=== PATIENT | female | born 1945 | race Caucasian/White ===

== ENCOUNTER → 2017-03-02 | Outpatient (CLI) | payer MEDICARE, OTHER ==
[~2017-03-02] VITALS: Ht 170.2 cm; Wt 81.2 kg
[~2017-03-02] MED LIST: CALC600T10 PO; EVIS1TAB PO; HYDR25TAB PO; LIPI10TA PO; MULT1TAB10 PO; NS 1,000 ML IV ONE; OMEP40CA2 PO; PROPOFOL 200 MG/20 ML VIAL As Ordered ONE; VITA100037 PO
--- NOTE | 2017-03-02 10:12 | ROOR ---
Patient Name: Marixa Santos Procedure Date: 03/02/2017 9:59 AM Date of : 1945 Age: 72 Room: [facility] Gender: Female Note Status: Finalized Procedure: Colonoscopy Indications: High risk colon cancer surveillance: Personal history of colonic polyps Providers: Irvin LAMB MD Referring MD: CELINA JARVIS MD Requesting Provider: Medicines: Monitored Anesthesia Care Complications: No immediate complications. Procedure: Pre-Anesthesia Assessment: - The heart rate, respiratory rate, oxygen saturations, blood pressure, adequacy of pulmonary ventilation, and response to care were monitored throughout the procedure. The Colonoscope was introduced through the anus and advanced to the cecum, identified by appendiceal orifice and ileocecal valve. The colonoscopy was performed without difficulty. The patient tolerated the procedure well. The quality of the bowel preparation was good. Findings: The perianal and digital rectal examinations were normal. A diminutive polyp was found in the ascending colon. The polyp was sessile. The polyp was removed with a cold snare. Resection and retrieval were complete. The exam was otherwise without abnormality on direct and retroflexion views. Impression: - One diminutive polyp in the ascending colon, removed with a cold snare. Resected and retrieved. - The examination was otherwise normal on direct and retroflexion views. Recommendation: - Telephone endoscopist for pathology results in 2 weeks. - If the pathology report reveals adenomatous tissue, then repeat the colonoscopy for surveillance in 5 years. - If the pathology report indicates hyperplastic polyp, then repeat colonoscopy for screening purposes in 10 years. Irvin Lamb MD Irvin LAMB MD 03/02/2017 10:11:35 AM This report has been signed electronically. Number of Addenda: 0 Note Initiated On: 03/02/2017 9:59 AM Estimated Blood Loss: Estimated blood loss: none.
[2017-03-02 10:35] VITALS: BP 119/57
== END ==
LOC: M OPP 08:23
PROVIDERS: ATTEND Internal Medicine Gastroenterology
DX: Z12.11 Encounter for screening for malignant neoplasm of colon (principal); Z86.010 Personal history of colon polyps; D12.2 Benign neoplasm of ascending colon; Z79.899 Other long term (current) drug therapy; K21.9 Gastro-esophageal reflux disease without esophagitis; M19.90 Unspecified osteoarthritis, unspecified site; H81.09 Meniere's disease, unspecified ear; Z85.3 Personal history of malignant neoplasm of breast

== ENCOUNTER → 2017-07-18 | Outpatient (REF) | payer MEDICARE, OTHER ==
[~2017-07-18] MED LIST changes: -CALC600T10 PO; +CALC600T31 PO; -NS 1,000 ML IV ONE; -PROPOFOL 200 MG/20 ML VIAL As Ordered ONE; -VITA100037 PO; +VITA100067 PO
[2017-07-18 16:59] LABS: CREATININE FOR GFR 0.98 MG/DL (0.55-1.02); GLOMERULAR FILTRATION RATE 59.7 (>39)
== END ==
LOC: M LAB REF 16:24
PROVIDERS: ATTEND Otolaryngology
DX: H90.3 Sensorineural hearing loss, bilateral (principal)

== ENCOUNTER → 2017-07-20 | Outpatient (CLI) | payer MEDICARE, OTHER ==
[~2017-07-20] MED LIST changes: +PROHANCE 279.3MG/ML 5ML VIAL (A9576) As Ordered ONE
--- NOTE | 2017-07-20 16:41 | REP ---
MRI BRAIN WITHOUT AND WITH CONTRAST: HISTORY: Sensorial hearing loss. CONTRAST: ProHance 8 mL Several punctate areas of increased signal intensity on T2-weighted images are present in the periventricular and subcortical white matter. This represents small vessel ischemic disease. There is no intraparenchymal hemorrhage, infarct, mass or midline shift. There is no abnormal enhancement. The ventricular system is normal in appearance. The cortical sulci are dilated consistent with minimal volume loss. There is no extracerebral collection. There is no cerebellopontine angle mass. The inner ear structures are normal in appearance. The mastoid air cells and sinuses are clear. IMPRESSION: 1. Minimal small vessel ischemic disease. 2. Minimal volume loss. Signed by Dax Luque MD 07/20/2017 04:48 P
== END ==
LOC: M RAD 14:02
PROVIDERS: ATTEND Otolaryngology
DX: I67.82 Cerebral ischemia (principal); H90.3 Sensorineural hearing loss, bilateral
CPT/HCPCS: 70553; A9576

== ENCOUNTER → 2017-10-26 | Outpatient (REF) | payer MEDICARE, OTHER | LOC: M SFHCCAPE 10:48 | DX: J22 Unspecified acute lower respiratory infection (principal); R30.0 Dysuria | CPT/HCPCS: 87186 ==

== ENCOUNTER → 2018-10-27 | Outpatient (REF) | payer MEDICARE, OTHER ==
[~2018-10-27] MED LIST changes: -PROHANCE 279.3MG/ML 5ML VIAL (A9576) As Ordered ONE
== END ==
LOC: M LAB REF 09:40
PROVIDERS: ATTEND Physician Assistant
DX: R30.0 Dysuria (principal)

== ENCOUNTER → 2019-03-10 | Outpatient (CLI) | payer MEDICARE, OTHER ==
--- NOTE | 2019-03-13 09:28 | SLEEPCENT ---
DATE OF STUDY: 03/10/2019 ORDERED BY: Heena Stevens NP Nocturnal polysomnography was performed for evaluation of sleep physiology in this patient with a history of loud snoring, excessive somnolence and nonrestorative sleep. 6 hours and 52 minutes of data were reviewed. There were 377 minutes of sleep identified. Sleep latency was short at 7.5 minutes. REM latency was short at 89 minutes. Sleep architecture was fairly good with three REM cycles. Overall sleep efficiency 92.1%. The electrocardiogram showed a sinus rhythm with an average heart rate of 65 beats per minute. EEG showed mild coarsening in background some alpha intrusion into non REM stages. There 214 respiratory events identified of 10 seconds in duration or greater for an apnea-hypopnea index of 34.0. The events were primarily obstructive, but 35 mixed and central apneas were also seen. Arousals from respiratory events occurred 7.2 times per hour and oxygen desaturations were seen into the 80s. There was minimal activity in the limb leads that resulted in arousal. Snoring was noted over the entire course of study. IMPRESSION: Obstructive sleep apnea syndrome (G47.33). Apnea-hypopnea index 34. RECOMMENDATION: The patient should be encouraged to return to the sleep disorder center for pressure therapy. In the interim, alcohol and sedative avoidance should be practiced and caution exercised during operation of motor vehicles. cc: Shar Alberts MD
== END ==
LOC: M SLEEP 20:00
PROVIDERS: ATTEND Nurse Practitioner Adult Health
DX: G47.33 Obstructive sleep apnea (adult) (pediatric) (principal)

== ENCOUNTER → 2019-04-11 | Outpatient (CLI) | payer MEDICARE, OTHER ==
--- NOTE | 2019-04-17 09:01 | SLEEPCENT ---
DATE OF PROCEDURE: 04/11/2019 ORDERED BY: Heena Stevens Nocturnal polysomnography was performed for the titration of pressure therapy in this patient with obstructive sleep apnea syndrome and apnea-hypopnea index of 34. For testing, a Qapitalus full-face mask of small size was used and 4 cm of water pressure were applied to the circuit and the lights were extinguished. 7 hours and 39 minutes of data were reviewed. There were 420 minutes of sleep identified. Sleep latency was short at 5.5 minutes. Rapid eye movement (REM) latency was normal at 82 minutes. Sleep architecture was good with 3 long REM cycles. Overall sleep efficiency was 93%. The patient's electrocardiogram showed a sinus rhythm with an average heart rate of 62 beats per minute. Electroencephalogram (EEG) showed normal waveforms for awake and sleep. Respiratory events were fully palliated with C-PAP at a pressure of +7. Some limb activity was noted in the EMG leads and the limb movement arousal index was 5.1. IMPRESSION: Obstructive sleep apnea syndrome (G47.33). RECOMMENDATION: Nightly use of pressure therapy at 7 cm of water.
== END ==
LOC: M SLEEP 19:47
PROVIDERS: ATTEND Nurse Practitioner Adult Health
DX: G47.33 Obstructive sleep apnea (adult) (pediatric) (principal)

== ENCOUNTER → 2020-08-16 | Outpatient (CLI) | payer MEDICARE, OTHER ==
[~2020-08-16] MED LIST changes: +ALLE180T33 PO; +ATOR1TAB21 PO; +CALC600C3 PO; +CVS1CAP2 PO; +IBUP200C28 PO; +MECL1TAB31 PO; -OMEP40CA2 PO; +OMEP40CA97 PO; +VITA100017 PO; +[UNRECOGNIZED DRUG - OTHER] PO
== END ==
LOC: M LABSMTC 08:30
PROVIDERS: ATTEND Anesthesiology
DX: Z01.812 Encounter for preprocedural laboratory examination (principal); Z20.828 Contact with and (suspected) exposure to other viral communicable diseases

== ENCOUNTER 2020-08-21 07:15 | Day surgery (SDC) | payer MEDICARE, OTHER ==
[~2020-08-21] VITALS: Ht 167.6 cm; Wt 81.6 kg
[~2020-08-21 07:15] MED LIST changes: +NS 1,000 ML IV ONE
[2020-08-21] MEDS ORDERED: LIDOCAINE 2% 100MG/5ML SDV (FOR ANES.) As Ordered ONE (08:26)
[2020-08-21] MEDS ORDERED: propofoL 200 MG/20 ML VIAL As Ordered ONE (08:26)
--- NOTE | 2020-08-21 08:41 | ROOR ---
Patient Name: Marixa Santos Procedure Date: 08/21/2020 8:17 AM Date of : 1945 Age: 75 Room: [facility] Gender: Female Note Status: Finalized Procedure: Colonoscopy Indications: High risk colon cancer surveillance: Personal history of colonic polyps, Last colonoscopy: February 2017 Providers: Irvin LAMB MD Referring MD: CELINA JARVIS MD Requesting Provider: Medicines: Monitored Anesthesia Care Complications: No immediate complications. Procedure: Pre-Anesthesia Assessment: - The heart rate, respiratory rate, oxygen saturations, blood pressure, adequacy of pulmonary ventilation, and response to care were monitored throughout the procedure. The Colonoscope was introduced through the anus and advanced to the cecum, identified by appendiceal orifice and ileocecal valve. The colonoscopy was performed without difficulty. The patient tolerated the procedure well. The quality of the bowel preparation was good. Findings: The perianal and digital rectal examinations were normal. Two sessile polyps were found in the splenic flexure and ascending colon. The polyps were diminutive in size. These polyps were removed with a cold snare. Resection and retrieval were complete. Mild sigmoid diverticulosis and small internal hemorrhoids. The exam was otherwise without abnormality. Impression: - Two diminutive polyps at the splenic flexure and in the ascending colon, removed with a cold snare. Resected and retrieved. - Mild sigmoid diverticulosis and small internal hemorrhoids. - The examination was otherwise normal. Recommendation: - Repeat colonoscopy in 5 years for surveillance. Procedure Code(s): --- Professional --- 94135, Colonoscopy, flexible; with removal of tumor(s), polyp(s), or other lesion(s) by snare technique Diagnosis Code(s): --- Professional --- K63.5, Polyp of colon Z86.010, Personal history of colonic polyps CPT copyright 2019 [employer]. All rights reserved. The codes documented in this report are preliminary and upon music executive review may be revised to meet current compliance requirements. Irvin Lamb MD Irvin LAMB MD 08/21/2020 8:42:02 AM Electronically signed by Irvin LAMB MD Number of Addenda: 0 Note Initiated On: 08/21/2020 8:17 AM Estimated Blood Loss: Estimated blood loss: none.
[2020-08-21 09:05] VITALS: BP 109/50
== END 2020-08-21 09:13 | disposition home or self-care (01) ==
LOC: M OPP 07:15
PROVIDERS: ATTEND Internal Medicine Gastroenterology
DX: Z12.11 Encounter for screening for malignant neoplasm of colon (principal); Z86.010 Personal history of colon polyps; D12.2 Benign neoplasm of ascending colon; D12.3 Benign neoplasm of transverse colon; K57.30 Diverticulosis of large intestine without perforation or abscess without bleeding; K64.8 Other hemorrhoids; G47.30 Sleep apnea, unspecified; Z79.899 Other long term (current) drug therapy; Z85.3 Personal history of malignant neoplasm of breast; Z92.3 Personal history of irradiation

== ENCOUNTER → 2020-10-29 | Outpatient (CLI) | payer MEDICARE, OTHER ==
[~2020-10-29] MED LIST changes: +HYDR-3490 PO; -HYDR25TAB PO; -NS 1,000 ML IV ONE
--- NOTE | 2020-10-29 10:25 | REP ---
INDICATION: M25.541 PAIN RT HAND, PAIN RT KNEE COMPARISON: None. TECHNIQUE: AP, lateral, bilateral oblique and sunrise views. FINDINGS: The osseous structures and joint spaces are intact and age-appropriate. No overt osteoarthritic degenerative changes are appreciated. There is no evidence for acute fracture or dislocation. No joint effusion is appreciated. Surrounding soft tissues are unremarkable. No subcutaneous emphysema or radiodense foreign body. IMPRESSION: Normal age-appropriate right knee examination. <Electronically signed by Jono Vines > 10/29/20 1022
--- NOTE | 2020-10-29 10:27 | REP ---
INDICATION: M25.541 PAIN RT HAND, PAIN RT KNEE COMPARISON: None. TECHNIQUE: AP, lateral, bilateral oblique views right hand. FINDINGS: Mild relatively age-related changes are appreciated including subtle subchondral sclerosis and minimal joint space narrowing at the interphalangeal joints and 1st carpometacarpal joint. No acute fracture or dislocation. IMPRESSION: Mild age-related degenerative changes.. No acute fracture or dislocation. <Electronically signed by Jono Vines > 10/29/20 1028
== END ==
LOC: M WUC 09:33
PROVIDERS: ATTEND Internal Medicine
DX: M25.561 Pain in right knee (principal); M19.041 Primary osteoarthritis, right hand

== ENCOUNTER → 2020-10-29 | Outpatient (CLI) | payer MEDICARE, OTHER ==
[2020-10-29 11:37] LABS: BASO # 0.1 10^3/uL (0.0-0.2); BASO % 1.1 % (0.0-1.0); EOS # 0.3 10^3/uL (0.0-0.5); EOS % 3.6 % (0.0-3.0); HEMOGLOBIN 14.4 g/dl (12.0-15.5); LYMPH # 2.3 10^3/uL (1.5-5.0); MEAN CORPUSCULAR HEMOGLOBIN 27.9 pg (27.0-33.0); MEAN CORPUSCULAR HGB CONC 31.3 g/dl (32.0-36.5); MONO # 0.7 10^3/uL (0.0-0.8); MONO % 9.4 % (0.0-5.0); NEUTROPHILS # 4.1 10^3/uL (1.5-8.5); NEUTROPHILS % 53.6 % (36.0-66.0); PLATELET COUNT, AUTOMATED 292 10^3/uL (150-450); RED BLOOD COUNT 5.17 10^6/uL (4.00-5.40); WHITE BLOOD COUNT 7.6 10^3/uL (4.0-10.0)
== END ==
LOC: M WUC 09:41
PROVIDERS: ATTEND Physician Assistant Medical
DX: K62.5 Hemorrhage of anus and rectum (principal)

== ENCOUNTER → 2021-06-18 | Outpatient (CLI) | payer MEDICARE, OTHER ==
[~2021-06-18] MED LIST changes: +OMEP40CA4 PO; -OMEP40CA97 PO
== END ==
LOC: M LABSMTC 10:12
PROVIDERS: ATTEND Pediatrics
DX: Z20.822 Contact with and (suspected) exposure to COVID-19 (principal)
CPT/HCPCS: C9803; U0003

== ENCOUNTER → 2021-08-09 | Outpatient (REF) | payer MEDICARE, OTHER | LOC: M LAB REF 15:59 | PROVIDERS: ATTEND Internal Medicine | DX: K92.1 Melena (principal) ==

== ENCOUNTER → 2021-10-13 | Outpatient (CLI) | payer MEDICARE, OTHER ==
[2021-10-13 13:28] LABS: BLOOD UREA NITROGEN 20 MG/DL (7-18); CREATININE FOR GFR 0.92 MG/DL (0.55-1.30); GLOMERULAR FILTRATION RATE > 60.0 (>39)
== END ==
LOC: M LAB 11:59
PROVIDERS: ATTEND Physician Assistant Medical
DX: R19.4 Change in bowel habit (principal)

== ENCOUNTER → 2021-10-25 | Outpatient (REF) | payer MEDICARE, OTHER | LOC: M LAB REF 15:56 | PROVIDERS: ATTEND Physician Assistant | DX: N39.0 Urinary tract infection, site not specified (principal) ==

== ENCOUNTER → 2021-11-22 | Outpatient (CLI) | payer MEDICARE, OTHER | LOC: M LABSMTC 11:11 | PROVIDERS: ATTEND Anesthesiology | DX: Z01.818 Encounter for other preprocedural examination (principal); Z11.52 Encounter for screening for COVID-19 ==

== ENCOUNTER 2021-11-26 09:44 | Day surgery (SDC) | payer MEDICARE, OTHER ==
[~2021-11-26] VITALS: Ht 167.6 cm; Wt 83.1 kg
[~2021-11-26 09:44] MED LIST changes: +NS 1,000 ML IV ONE
[2021-11-26] MEDS ORDERED: fentaNYL 100 MCG/2 ML INJECTION As Ordered ONE (11:35)
[2021-11-26] MEDS ORDERED: LIDOCAINE 2% 100MG/5ML SDV (FOR ANES.) As Ordered ONE (12:27)
[2021-11-26 12:40] VITALS: BP 124/56
[2021-11-26 14:11] LABS: CLOSTRIDIUM DIFFICILE PCR NEGATIVE (NEGATIVE)
== END 2021-11-26 13:06 | disposition home or self-care (01) ==
LOC: M OPP 09:44
PROVIDERS: ATTEND Internal Medicine Gastroenterology
DX: K57.30 Diverticulosis of large intestine without perforation or abscess without bleeding (principal); K64.8 Other hemorrhoids; R19.7 Diarrhea, unspecified; R63.4 Abnormal weight loss; K31.7 Polyp of stomach and duodenum; R12 Heartburn; Z86.010 Personal history of colon polyps; Z79.899 Other long term (current) drug therapy; Z85.3 Personal history of malignant neoplasm of breast
CPT/HCPCS: 43239; 45380; 87324; 88305; J3010

== ENCOUNTER → 2021-12-22 | Outpatient (REF) | payer MEDICARE, OTHER ==
[~2021-12-22] MED LIST changes: -NS 1,000 ML IV ONE
== END ==
LOC: M LAB REF 12:33
PROVIDERS: ATTEND Physician Assistant Medical
DX: R19.4 Change in bowel habit (principal)

== ENCOUNTER → 2022-03-28 | Outpatient (REF) | payer MEDICARE, OTHER | LOC: M LAB REF 15:47 | PROVIDERS: ATTEND Physician Assistant Medical | DX: R19.8 Other specified symptoms and signs involving the digestive system and abdomen (principal) ==

== ENCOUNTER → 2022-05-16 | Outpatient (CLI) | payer MEDICARE, OTHER | LOC: M WHC 11:01 | PROVIDERS: ATTEND Internal Medicine | DX: R32 Unspecified urinary incontinence (principal) ==

== ENCOUNTER → 2022-06-20 | Outpatient (REF) | payer MEDICARE, OTHER | LOC: M SFHCCAPE 13:44 | PROVIDERS: ATTEND Physician Assistant | DX: J22 Unspecified acute lower respiratory infection (principal) ==

== ENCOUNTER → 2022-07-25 | Outpatient (CLI) | payer MEDICARE, OTHER | LOC: M PLARAD 13:17 | PROVIDERS: ATTEND Surgery | DX: C50.911 Malignant neoplasm of unspecified site of right female breast (principal) | CPT/HCPCS: 78815; A9552 ==

== ENCOUNTER → 2022-07-28 | Outpatient (REF) | payer MEDICARE, OTHER ==
[2022-07-28 17:53] LABS: CALCIUM LEVEL 9.5 MG/DL (8.8-10.2); GLOMERULAR FILTRATION RATE 57.5 (>39); POTASSIUM SERUM 3.4 MEQ/L (3.5-5.1)
== END ==
LOC: M SFHCCAPE 08:17
PROVIDERS: ATTEND Surgery
DX: R94.8 Abnormal results of function studies of other organs and systems (principal)

== ENCOUNTER → 2022-08-01 | Outpatient (CLI) | payer MEDICARE, OTHER ==
[~2022-08-01] MED LIST changes: +ISOVUE-370 76% 100ML VIAL As Ordered ONE; +OXYB10TA23 PO
== END ==
LOC: M RAD 08:24
PROVIDERS: ATTEND Surgery
DX: R94.8 Abnormal results of function studies of other organs and systems (principal)
CPT/HCPCS: 71260; Q9967

== ENCOUNTER → 2022-08-04 | Outpatient (CLI) | payer MEDICARE, OTHER ==
[~2022-08-04] MED LIST changes: -ISOVUE-370 76% 100ML VIAL As Ordered ONE
== END ==
LOC: M LABSMTC 11:31
PROVIDERS: ATTEND Anesthesiology
DX: Z01.812 Encounter for preprocedural laboratory examination (principal); Z11.52 Encounter for screening for COVID-19

== ENCOUNTER 2022-08-08 11:57 | Observation (INO) | payer MEDICARE, OTHER ==
[~2022-08-08] VITALS: Ht 165.1 cm; Wt 85.0 kg
[~2022-08-08 11:57] MED LIST changes: +HEPARIN SOD (PORCINE) 5000UNITS/ML 1ML VIAL/SYRINGE SQ ONE; +ceFAZolin SOD 2 GM in IV 1 EA IV ONE
[2022-08-08] MEDS ORDERED: LR 1,000 ML IV SCH ×3 (12:10→21:20)
[2022-08-08] MEDS ORDERED: fentaNYL 100 MCG/2 ML INJECTION As Ordered ONE ×2 (14:35→17:56)
[2022-08-08] MEDS ORDERED: propofoL 200 MG/20 ML VIAL As Ordered ONE (14:35)
[2022-08-08] MEDS ORDERED: MIDAZOLAM INJ 2MG/2ML VIAL (J2250 PER 1MG) As Ordered ONE (14:35)
[2022-08-08] MEDS ORDERED: ROCURONIUM BROMIDE 50 MG/5 ML VIAL As Ordered ONE (14:35)
[2022-08-08] MEDS ORDERED: dexameTHASONE 4 MG/ML 1ML VIAL (J1100 PER 1MG) As Ordered ONE (14:35)
[2022-08-08] MEDS ORDERED: ONDANSETRON 4MG 2ML VIAL As Ordered ONE (14:35)
[2022-08-08] MEDS ORDERED: LIDOCAINE 2% 100MG/5ML SDV (FOR ANES.) As Ordered ONE (14:35)
[2022-08-08] MEDS ORDERED: BUPIVACAINE LIPOSOME/PF 1.3% 20ML VIAL (13.3MG/ML)(EXPAREL) As Ordered ONE (15:32)
[2022-08-08] MEDS ORDERED: BUPIVACAINE HCL 0.25% 30ML VIAL As Ordered ONE (15:32)
[2022-08-08] MEDS ORDERED: SCOPOLAMINE 1MG TRANSDERMAL PATCH TOP ONE (16:05)
[2022-08-08] MEDS ORDERED: ACETAMINOPHEN 1000MG 100ML IV BAG As Ordered ONE (16:30)
[2022-08-08] MEDS ORDERED: ePHEDrine SULFATE 25 MG/5 ML(5MG/ML) SYRINGE As Ordered ONE (16:46)
[2022-08-08] MEDS ORDERED: ceFAZolin 2 GM/D5W 50 ML IV BAG As Ordered ONE (20:21)
[2022-08-08] MEDS ORDERED: ONDANSETRON 4MG 2ML VIAL IV PRN ×2 (20:25→21:20)
[2022-08-08] MEDS ORDERED: oxyCODONE 5MG TAB PO PRN (20:25)
[2022-08-08] MEDS ORDERED: fentaNYL 100 MCG/2 ML INJECTION IV PRN (20:25)
[2022-08-08] MEDS ORDERED: HYDROMORPHONE HCL 0.5 MG/ 0.5 ML SYRINGE (J1170 PER 1) IV PRN (20:25)
[2022-08-08] MEDS ORDERED: traMADol 50 MG TAB PO PRN (21:20)
[2022-08-08] MEDS ORDERED: MORPHINE 2 MG/ML 1ML VIAL IV PRN (21:20)
[2022-08-08] MEDS ORDERED: ACETAMINOPHEN TAB 650MG DOSE (2X325MG) PO PRN (21:20)
[2022-08-08 22:15] VITALS: BP 150/56
[2022-08-08 22:45] VITALS: BP 148/58
[2022-08-08] MEDS ORDERED: MECLIZINE 25 MG TABLET PO PRN (23:00)
[2022-08-08 23:15] VITALS: BP 144/60
[2022-08-08 23:45] VITALS: BP 142/62
[2022-08-09 00:45] VITALS: BP 140/60
[2022-08-09 01:45] VITALS: BP 121/46
[2022-08-09 02:45] VITALS: BP 132/60
[2022-08-09 03:45] VITALS: BP 134/53
[2022-08-09 06:00] VITALS: BP 123/52
[2022-08-09] MEDS ORDERED: ceFAZolin SOD 2 GM in IV 1 EA IV ONE (06:00)
[2022-08-09] MEDS ORDERED: TRAM50TA2 PO (08:42)
[2022-08-09 08:48] LABS: BASO % 0.1 % (0.0-1.0); HEMATOCRIT 35.1 % (36.0-47.0); HEMOGLOBIN 10.9 g/dl (12.0-15.5); LYMPH # 1.2 10^3/uL (1.5-5.0); LYMPH % 7.9 % (24.0-44.0); MEAN CORPUSCULAR HEMOGLOBIN 27.7 pg (27.0-33.0); MEAN CORPUSCULAR HGB CONC 31.1 g/dl (32.0-36.5); MEAN CORPUSCULAR VOLUME 89.1 fl (80.0-96.0); MONO # 1.4 10^3/uL (0.0-0.8); MONO % 9.3 % (2.0-8.0); NEUTROPHILS # 12.1 10^3/uL (1.5-8.5); NEUTROPHILS % 82.1 % (36.0-66.0); PLATELET COUNT, AUTOMATED 229 10^3/uL (150-450); RED BLOOD COUNT 3.94 10^6/uL (4.00-5.40); WHITE BLOOD COUNT 14.7 10^3/uL (4.0-10.0)
[2022-08-09] MEDS ORDERED: FEXOFENADINE 60MG TAB PO SCH (09:00)
[2022-08-09] MEDS ORDERED: LACTOBACILLUS ACIDOPHILUS CAP (BACID) PO SCH (09:00)
[2022-08-09] MEDS ORDERED: OMEPRAZOLE 20MG CAP PO SCH (09:00)
[2022-08-09] MEDS ORDERED: ENTER DRUG NAME HERE (PATIENT'S OWN MED) PO SCH (09:00)
[2022-08-09] MEDS ORDERED: ATORVASTATIN 20 MG TAB PO SCH (09:00)
[2022-08-09 09:21] LABS: BLOOD UREA NITROGEN 17 MG/DL (9-23); CALCIUM LEVEL 7.8 MG/DL (8.3-10.6); CARBON DIOXIDE LEVEL 26 MMOL/L (20-31); CHLORIDE LEVEL 103 MMOL/L (98-107); CREATININE FOR GFR 0.85 MG/DL (0.55-1.30); GLOMERULAR FILTRATION RATE > 60.0 (>39); GLUCOSE, FASTING 133 MG/DL (74-106); MAGNESIUM LEVEL 1.5 MG/DL (1.8-2.4); POTASSIUM SERUM 3.6 MMOL/L (3.5-5.1); SODIUM LEVEL 140 MMOL/L (136-145)
[2022-08-09] MEDS ORDERED: MAG SULF 1GM/100ML (MAG RUN) 1 GM in IV 1 EA IV ONE (10:00)
[2022-08-09 10:30] VITALS: BP 121/50
[2022-08-09] MEDS ORDERED: MAGN1TAB26 PO ×2 (11:17→16:20)
[2022-08-09] MEDS ORDERED: MIRA3350 PO (16:19)
[2022-08-10] MEDS ORDERED: UNRESOLVED PATIENT OWN MED ORDER XX SCH (00:01)
== END 2022-08-09 12:50 | disposition home or self-care (01) ==
LOC: M SDC 11:57 → M ED INP 21:19 → M MS5PR 22:15
PROVIDERS: ADMIT Surgery; ATTEND Surgery
DX: D05.11 Intraductal carcinoma in situ of right breast (principal); N64.89 Other specified disorders of breast; Z92.3 Personal history of irradiation; Z80.3 Family history of malignant neoplasm of breast; E83.42 Hypomagnesemia; E78.5 Hyperlipidemia, unspecified; H81.09 Meniere's disease, unspecified ear; G47.33 Obstructive sleep apnea (adult) (pediatric); N32.81 Overactive bladder; K21.9 Gastro-esophageal reflux disease without esophagitis; K58.9 Irritable bowel syndrome, unspecified; I10 Essential (primary) hypertension; Z79.899 Other long term (current) drug therapy; Z85.828 Personal history of other malignant neoplasm of skin
CPT/HCPCS: 19303; 36415; 38525; 78195; 80048; 83735; 85025; 86850; 86900; 86901; 88307; 96374; A9520; C9290; G0378; J0131; J0690; J1100; J1644; J2250; J2405; J3010; J3475

== ENCOUNTER → 2022-09-26 | Outpatient (CLI) | payer MEDICARE, OTHER ==
[~2022-09-26] MED LIST changes: -HEPARIN SOD (PORCINE) 5000UNITS/ML 1ML VIAL/SYRINGE SQ ONE; +MAGN1TAB26 PO; +MIRA3350 PO; +TRAM50TA2 PO; -ceFAZolin SOD 2 GM in IV 1 EA IV ONE
[2022-09-26 15:53] LABS: PROTHROMBIN TIME 13.4 SECONDS (12.5-14.5)
== END ==
LOC: M PLALAB 12:18
PROVIDERS: ATTEND Internal Medicine Medical Oncology
DX: Z79.01 Long term (current) use of anticoagulants (principal)

== ENCOUNTER → 2022-10-03 | Outpatient (CLI) | payer MEDICARE, OTHER ==
[~2022-10-03] MED LIST changes: +LIDOCAINE 1% MDV 20ML VIAL As Ordered ONE; +MIDAZOLAM INJ 2MG/2ML VIAL As Ordered ONE; +NS 1,000 ML IV SCH; +ceFAZolin 2 GM/D5W 50 ML IV BAG As Ordered ONE; +ceFAZolin SOD 2 GM in IV 1 EA IV ONE; +diphenhydrAMINE 50MG/ML VIAL As Ordered ONE; +fentaNYL 100 MCG/2 ML INJECTION As Ordered ONE
[2022-10-03 16:27] VITALS: BP 134/70
== END ==
LOC: M IRPRO 12:35
PROVIDERS: ATTEND Internal Medicine Medical Oncology
DX: C50.919 Malignant neoplasm of unspecified site of unspecified female breast (principal)
CPT/HCPCS: 36561; 87635; 99152; 99153; C1769; C1788; C1894

== ENCOUNTER → 2022-10-18 | Outpatient (POV) | payer MEDICARE, OTHER ==
[~2022-10-18] VITALS: Ht 167.6 cm; Wt 81.8 kg
[~2022-10-18] MED LIST changes: +LIDO1CRE42 TOP; -LIDOCAINE 1% MDV 20ML VIAL As Ordered ONE; -MIDAZOLAM INJ 2MG/2ML VIAL As Ordered ONE; -NS 1,000 ML IV SCH; +ONDA-84 PO; +PROC10TA5 PO; -ceFAZolin 2 GM/D5W 50 ML IV BAG As Ordered ONE; -ceFAZolin SOD 2 GM in IV 1 EA IV ONE; -diphenhydrAMINE 50MG/ML VIAL As Ordered ONE; -fentaNYL 100 MCG/2 ML INJECTION As Ordered ONE
[2022-10-18 09:30] VITALS: BP 137/61
== END ==
LOC: M IRPOV 08:56
PROVIDERS: ATTEND Radiology Diagnostic Radiology
DX: Z45.2 Encounter for adjustment and management of vascular access device (principal)

== ENCOUNTER → 2022-12-30 | Outpatient (REF) | payer MEDICARE, OTHER ==
[~2022-12-30] MED LIST changes: +ACET-683 PO; +AMOX875T2 PO; +B-12100010 PO; +B-650TAB2 PO; +BENZ-18; +BENZ-18 PO; +MUCI1LIQ3 PO; +POTA10CA33 PO
[2022-12-30 18:39] LABS: BASO % 0.6 % (0.0-1.0); EOS # 0.2 10^3/uL (0.0-0.5); EOS % 4.8 % (0.0-3.0); HEMATOCRIT 36.5 % (36.0-47.0); HEMOGLOBIN 11.1 g/dl (12.0-15.5); LYMPH # 1.1 10^3/uL (1.5-5.0); LYMPH % 31.3 % (24.0-44.0); MEAN CORPUSCULAR HEMOGLOBIN 27.5 pg (27.0-33.0); MEAN CORPUSCULAR HGB CONC 30.4 g/dl (32.0-36.5); MEAN CORPUSCULAR VOLUME 90.6 fl (80.0-96.0); MONO # 0.1 10^3/uL (0.0-0.8); MONO % 3.9 % (2.0-8.0); NEUTROPHILS % 58.8 % (36.0-66.0); PLATELET COUNT, AUTOMATED 266 10^3/uL (150-450); RED BLOOD COUNT 4.03 10^6/uL (4.00-5.40); WHITE BLOOD COUNT 3.4 10^3/uL (4.0-10.0)
[2022-12-30 19:14] LABS: ALBUMIN 3.4 G/DL (3.2-5.2); ALKALINE PHOSPHATASE 96 U/L (46-116); ALT/SGPT 44 U/L (7.0-40); AST/SGOT 35 U/L (<34); BILIRUBIN,TOTAL 0.8 MG/DL (0.3-1.2); BLOOD UREA NITROGEN 15 MG/DL (9-23); CALCIUM LEVEL 9.1 MG/DL (8.3-10.6); CARBON DIOXIDE LEVEL 26 MMOL/L (20-31); CHLORIDE LEVEL 106 MMOL/L (98-107); CREATININE FOR GFR 0.76 MG/DL (0.55-1.30); GLOMERULAR FILTRATION RATE > 60.0 (>39); GLUCOSE, FASTING 101 MG/DL (74-106); POTASSIUM SERUM 4.2 MMOL/L (3.5-5.1); SODIUM LEVEL 140 MMOL/L (136-145); TOTAL PROTEIN 6.3 G/DL (5.7-8.2)
== END ==
LOC: M LABDRAWC 17:02
PROVIDERS: ATTEND Nurse Practitioner
DX: C50.919 Malignant neoplasm of unspecified site of unspecified female breast (principal)

== ENCOUNTER → 2023-02-07 | Outpatient (CLI) | payer MEDICARE, OTHER ==
[~2023-02-07] MED LIST changes: +ANAS1TAB2 PO; +AZIT500T5 PO; +ISOVUE-370 76% 100ML VIAL As Ordered ONE
== END ==
LOC: M RAD 13:16
PROVIDERS: ATTEND Specialist
DX: C50.919 Malignant neoplasm of unspecified site of unspecified female breast (principal)
CPT/HCPCS: 71260; Q9967

== ENCOUNTER → 2023-04-03 | Outpatient (CLI) | payer MEDICARE, OTHER ==
[~2023-04-03] MED LIST changes: -ISOVUE-370 76% 100ML VIAL As Ordered ONE; -LIDO1CRE42 TOP; +LIDO30CR18 TOP; -POTA10CA33 PO; +POTA10CA60 PO
== END ==
LOC: M PLARAD 11:17
PROVIDERS: ATTEND Specialist
DX: C50.411 Malignant neoplasm of upper-outer quadrant of right female breast (principal)
CPT/HCPCS: 78815; A9552

== ENCOUNTER → 2023-07-31 | Outpatient (CLI) | payer MEDICARE, OTHER ==
[~2023-07-31] MED LIST changes: +MECL-209 PO; -MECL1TAB31 PO
== END ==
LOC: M WHC 09:41
PROVIDERS: ATTEND Specialist
DX: C50.919 Malignant neoplasm of unspecified site of unspecified female breast (principal); M85.89 Other specified disorders of bone density and structure, multiple sites

== ENCOUNTER → 2023-08-16 | Outpatient (REF) | payer MEDICARE, OTHER | LOC: M SFHCCAPE 14:59 | PROVIDERS: ATTEND Physician Assistant Medical | DX: J02.9 Acute pharyngitis, unspecified (principal) ==

== ENCOUNTER → 2024-01-22 | Outpatient (REF) | payer MEDICARE, OTHER ==
[~2024-01-22] MED LIST changes: -POTA10CA60 PO; +POTA10CA70 PO; +[UNRECOGNIZED DRUG - CODE] PO
== END ==
LOC: M LABDRWCV 16:37
PROVIDERS: ATTEND Internal Medicine Hematology & Oncology
DX: C50.411 Malignant neoplasm of upper-outer quadrant of right female breast (principal)

== ENCOUNTER → 2024-07-02 | Outpatient (REF) | payer MEDICARE, OTHER ==
[2024-07-02 18:48] LABS: BASO # 0.1 10^3/uL (0.0-0.2); EOS # 0.3 10^3/uL (0.0-0.5); EOS % 2.9 % (0.0-3.0); HEMOGLOBIN 13.7 g/dl (12.0-15.5); LYMPH # 2.5 10^3/uL (1.5-5.0); LYMPH % 25.1 % (24.0-44.0); MEAN CORPUSCULAR HEMOGLOBIN 29.6 pg (27.0-33.0); MEAN CORPUSCULAR HGB CONC 31.9 g/dl (32.0-36.5); MEAN CORPUSCULAR VOLUME 92.9 fl (80.0-96.0); MONO # 0.7 10^3/uL (0.0-0.8); MONO % 7.4 % (2.0-8.0); NEUTROPHILS # 6.1 10^3/uL (1.5-8.5); NEUTROPHILS % 62.9 % (36.0-66.0); PLATELET COUNT, AUTOMATED 231 10^3/uL (150-450); RED BLOOD COUNT 4.63 10^6/uL (4.00-5.40); WHITE BLOOD COUNT 9.8 10^3/uL (4.0-10.0)
[2024-07-02 19:11] LABS: ALBUMIN 3.6 G/DL (3.2-5.2); ALKALINE PHOSPHATASE 65 U/L (46-116); ALT/SGPT 44 U/L (7.0-40); AST/SGOT 27 U/L (<34); BILIRUBIN,TOTAL 0.5 MG/DL (0.3-1.2); BLOOD UREA NITROGEN 16 MG/DL (9-23); CA15-3 ANTIGEN 26.4 U/ML (<32.4); CARBON DIOXIDE LEVEL 29 MMOL/L (20-31); CHLORIDE LEVEL 109 MMOL/L (98-107); CREATININE FOR GFR 0.84 MG/DL (0.55-1.30); GLOMERULAR FILTRATION RATE > 60.0 (>39); GLUCOSE, FASTING 90 MG/DL (74-106); POTASSIUM SERUM 4.6 MMOL/L (3.5-5.1); SODIUM LEVEL 142 MMOL/L (136-145); TOTAL PROTEIN 6.9 G/DL (5.7-8.2)
== END ==
LOC: M LABDRWCV 18:17
PROVIDERS: ATTEND Specialist
DX: C50.411 Malignant neoplasm of upper-outer quadrant of right female breast (principal)

== ENCOUNTER → 2025-01-02 | Outpatient (REF) | payer MEDICARE, OTHER ==
[~2025-01-02] MED LIST changes: +AMMO12CR7 TOP
[2025-01-02 19:01] LABS: ALBUMIN 3.4 G/DL (3.2-5.2); BILIRUBIN,TOTAL 0.4 MG/DL (0.3-1.2); CHOLESTEROL RISK RATIO 3.77 (<5); CREATININE FOR GFR 0.85 MG/DL (0.55-1.30); GLOMERULAR FILTRATION RATE 70.5 (>39); HDL CHOLESTEROL 42.4 MG/DL (>40); NON-HDL-C 117.6 MG/DL; POTASSIUM SERUM 4.2 MMOL/L (3.5-5.1); TOTAL PROTEIN 6.6 G/DL (5.7-8.2)
== END ==
LOC: M LABDRWCV 17:45
PROVIDERS: ATTEND Internal Medicine
DX: E78.5 Hyperlipidemia, unspecified (principal); R73.01 Impaired fasting glucose; K21.9 Gastro-esophageal reflux disease without esophagitis

== ENCOUNTER → 2025-01-02 | Outpatient (REF) | payer MEDICARE, OTHER ==
[2025-01-02 19:06] LABS: ALBUMIN 3.5 G/DL (3.2-5.2); BASO # 0.1 10^3/uL (0.0-0.2); BILIRUBIN,TOTAL 0.4 MG/DL (0.3-1.2); CALCIUM LEVEL 9.2 MG/DL (8.3-10.6); CREATININE FOR GFR 0.88 MG/DL (0.55-1.30); EOS # 0.2 10^3/uL (0.0-0.5); EOS % 2.7 % (0.0-3.0); GLOMERULAR FILTRATION RATE 67.6 (>39); HEMATOCRIT 43.6 % (36.0-47.0); HEMOGLOBIN 13.6 g/dl (12.0-15.5); LYMPH # 2.3 10^3/uL (1.5-5.0); MEAN CORPUSCULAR HEMOGLOBIN 29.2 pg (27.0-33.0); MEAN CORPUSCULAR HGB CONC 31.2 g/dl (32.0-36.5); MEAN CORPUSCULAR VOLUME 93.6 fl (80.0-96.0); MONO # 0.6 10^3/uL (0.0-0.8); MONO % 7.6 % (2.0-8.0); NEUTROPHILS # 4.7 10^3/uL (1.5-8.5); NEUTROPHILS % 59.2 % (36.0-66.0); PLATELET COUNT, AUTOMATED 220 10^3/uL (150-450); POTASSIUM SERUM 4.2 MMOL/L (3.5-5.1); RED BLOOD COUNT 4.66 10^6/uL (4.00-5.40); TOTAL PROTEIN 6.6 G/DL (5.7-8.2); WHITE BLOOD COUNT 7.9 10^3/uL (4.0-10.0)
[2025-01-02 19:23] LABS: CA15-3 ANTIGEN 26.4 U/ML (<32.4)
== END ==
LOC: M LABDRWCV 17:47
PROVIDERS: ATTEND Internal Medicine Hematology & Oncology
DX: C50.411 Malignant neoplasm of upper-outer quadrant of right female breast (principal)

== ENCOUNTER 2025-05-22 16:57 | Emergency (ER) | payer MEDICARE, OTHER ==
[~2025-05-22] VITALS: Ht 167.6 cm; Wt 90.9 kg
[~2025-05-22 16:57] MED LIST changes: +AMMO12CR4 TOP; -AMMO12CR7 TOP
[2025-05-22 19:44] VITALS: BP 158/72; TEMP 97.5; O2SAT 99
== END 2025-05-22 19:45 | disposition home or self-care (01) ==
LOC: M ED 16:57
DX: S90.32XA Contusion of left foot, initial encounter (principal); Y92.019 Unspecified place in single-family (private) house as the place of occurrence of the external cause; Y93.9 Activity, unspecified; Y99.9 Unspecified external cause status; V03.10XA Pedestrian on foot injured in collision with car, pick-up truck or van in traffic accident, initial encounter; I10 Essential (primary) hypertension; E78.00 Pure hypercholesterolemia, unspecified; G47.33 Obstructive sleep apnea (adult) (pediatric); K21.9 Gastro-esophageal reflux disease without esophagitis; K58.9 Irritable bowel syndrome, unspecified; C50.919 Malignant neoplasm of unspecified site of unspecified female breast; F32.A Depression, unspecified; Z79.1 Long term (current) use of non-steroidal anti-inflammatories (NSAID); Z79.899 Other long term (current) drug therapy

== ENCOUNTER → 2025-08-13 | Outpatient (REF) | payer MEDICARE, OTHER | LOC: M SFHCPLAZ 16:36 | PROVIDERS: ATTEND Family Medicine | DX: Z53.9 Procedure and treatment not carried out, unspecified reason (principal) ==

== ENCOUNTER → 2025-08-22 | Outpatient (CLI) | payer MEDICARE, OTHER ==
[2025-08-22 17:44] LABS: ALT/SGPT 37.0 U/L (7.0-40); AST/SGOT 31.0 U/L (<34); CALCIUM LEVEL 9.5 MG/DL (8.3-10.6); CARBON DIOXIDE LEVEL 29.0 MMOL/L (20-31); CHLORIDE LEVEL 108.0 MMOL/L (98-107); CHOLESTEROL LEVEL 159.0 MG/DL (<200); CHOLESTEROL RISK RATIO 3.61 (<5); CREATININE FOR GFR 0.83 MG/DL (0.55-1.30); GLOMERULAR FILTRATION RATE 72.1 (>39); LDL CHOLESTEROL 91.0 MG/DL (<100); NON-HDL-C 115.0 MG/DL; POTASSIUM SERUM 4.1 MMOL/L (3.5-5.1); SODIUM LEVEL 145.0 MMOL/L (136-145); TRIGLYCERIDES LEVEL 120.0 MG/DL (<150)
[2025-08-22 17:46] LABS: FREE T4 1.22 NG/DL (0.89-1.76)
[2025-08-22 18:05] LABS: ESTIMATED AVERAGE GLUCOSE 120.0 MG/DL (60-110)
== END ==
LOC: M PLALAB 14:46
PROVIDERS: ATTEND Family Medicine
DX: E78.00 Pure hypercholesterolemia, unspecified (principal); Z13.29 Encounter for screening for other suspected endocrine disorder; Z79.899 Other long term (current) drug therapy

== ENCOUNTER → 2025-09-15 | Outpatient (REF) | payer MEDICARE, OTHER ==
[2025-09-15 18:56] LABS: ALT/SGPT 26.0 U/L (7.0-40); AST/SGOT 25.0 U/L (<34); CALCIUM LEVEL 9.7 MG/DL (8.3-10.6); CARBON DIOXIDE LEVEL 31.0 MMOL/L (20-31); CHLORIDE LEVEL 104.0 MMOL/L (98-107); CREATININE FOR GFR 0.82 MG/DL (0.55-1.30); GLOMERULAR FILTRATION RATE 73.2 (>39); POTASSIUM SERUM 4.0 MMOL/L (3.5-5.1); SODIUM LEVEL 144.0 MMOL/L (136-145)
[2025-09-15 18:58] LABS: BASO # 0.1 10^3/uL (0.0-0.2); BASO % 0.9 % (0.0-1.0); EOS # 0.3 10^3/uL (0.0-0.5); EOS % 2.8 % (0.0-3.0); LYMPH # 2.1 10^3/uL (1.5-5.0); LYMPH % 22.0 % (24.0-44.0); MONO # 0.6 10^3/uL (0.0-0.8); MONO % 6.1 % (2.0-8.0); NEUTROPHILS # 6.3 10^3/uL (1.5-8.5); NEUTROPHILS % 67.7 % (36.0-66.0); PLATELET COUNT, AUTOMATED 228 10^3/uL (150-450); TOTAL 25(OH) VITAMIN D 73.3 NG/ML (20.0-100.0)
[2025-09-15 19:12] LABS: CA15-3 ANTIGEN 29.2 U/ML (<32.4)
== END ==
LOC: M LABDRWCV 17:45
PROVIDERS: ATTEND Internal Medicine Hematology & Oncology
DX: C50.411 Malignant neoplasm of upper-outer quadrant of right female breast (principal); Z79.899 Other long term (current) drug therapy